=== PATIENT | male | born 2000 ===

== ENCOUNTER 2023-12-20 09:55 | Outpatient (AMB) | payer OTHER, SELFPAY ==
--- NOTE | 2023-12-20 10:19 | MHC.OFFVIS ---
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 Patient reports that he was playing basketball about 2 weeks ago, he jammed the finger. Had increased swelling and discoloration. He was put in a finger splint with concerns of fracture or ligament tear. 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 He was referred her for volar plate avulsion. He has been immobilized for 2 weeks. [facility] Social History (Updated 12/20/23 @ 10:33 by Gosia Sanon [facility]) Current occupational status: student Physical Exam Const General: cooperative, healthy appearing, no acute distress, well developed and alert HEENT Head: Yes normal to inspection, Yes normocephalic and Yes atraumatic Mouth: moist mucous membranes Eyes General: appearance normal, both eyes and all related structures EOM: EOMs intact bilaterally Chest Other: no audible wheezing. Resp Other: No audible wheezing Effort & Inspection: normal respiratory effort Back/Spine/Pelvis Cervical Spine: normal cervical lordosis Skin General skin exam: no rashes or lesions noted Neuro General: no focal motor deficits Extrem Other: There is ttp over volar surface of IF PIP on right Minimal STS Stable radial and ulnar collaterals Psych Appearance: grossly normal and well kempt Mental Status: mental status grossly normal Speech and movement: Normal speech and movement present Affect: normal affect Attitude: cooperative Results Reviewed Results Reviewed: small volar plate evulsion off middle phalanx, right IF. Assessment & Plan Assessment & Plan (1) Volar plate injury of interphalangeal finger joint: Code(s): S63.639A - Sprain of interphalangeal joint of unspecified finger, initial encounter Category: Medical Plan: This is a 23 yo RHD M with a STABLE volar plate avulsion off the IF MP. I recommend extension block splinting for 4 additional weeks. We reviewed splinting and I gave him one. I also recommend OT. He states he will go to OT but not until after finals. In the meantime I reviewed the pathoanatomy. He will return in 4-6 weeks. Orders: Orders XR hand RT min 3V Today S69.90XA - Unspecified injury of unspecified wrist, hand and finger(s), initial encounter OT Evaluation and Treatment Today S63.639A - Sprain of interphalangeal joint of unspecified finger, initial encounter Coding Level of Care Code New Pt Level 3 (22372) Diagnoses Volar plate injury of interphalangeal finger joint S63.630A
== END 2023-12-20 11:05 | disposition home or self-care (01) ==
LOC: HO.HOS 09:55
PROVIDERS: Visit Provider Orthopaedic Surgery
DX: S63.639A Sprain of interphalangeal joint of unspecified finger, initial encounter (principal)
CPT/HCPCS: 99203

== ENCOUNTER 2023-12-20 09:55 | Outpatient (REF) | payer OTHER, SELFPAY ==
--- NOTE | ~2023-12-20 | XR_ITS ---
EXAMINATION: XR hand RT min 3V CLINICAL INFORMATION: Reason for Exam S69.90XA - Unspecified injury of unspecified wrist, hand and finger(s), ... COMPARISON: None. TECHNIQUE: AP, lateral, and oblique views of the right hand FINDINGS: * There is a indeterminate ossific density and soft tissue swelling about the second digit along the volar aspect seen on one view only. * Joint spaces are maintained without significant degenerative change. XR/XR hand RT min 3V IMPRESSION: There is a indeterminate ossific density and soft tissue swelling about the second digit along the volar aspect seen on one view only. If there is clinical concern for an acute fracture, CT may be considered.
== END 2023-12-20 09:56 | disposition home or self-care (01) ==
LOC: HO.HOSX 09:55
PROVIDERS: Visit Provider Orthopaedic Surgery
DX: M25.441 Effusion, right hand (principal)
CPT/HCPCS: 73130; 99202